=== PATIENT | male | born 1950 | race Caucasian/White ===

== ENCOUNTER 2020-03-28 04:35 | Day surgery (SDC) | payer OTHER ==
[2020-03-22 13:35] VITALS: BMI 28.6
[2020-03-28 08:51] VITALS: TEMP 97.8
[2020-03-28 09:26] VITALS: BP 128/89; PULSE 70
== END 2020-03-28 10:37 | disposition home or self-care (01) ==
LOC: JASU-ENDO 04:35
PROVIDERS: ATTEND Internal Medicine Gastroenterology
PROC: 0DB68ZX Excision of Stomach, Via Natural or Artificial Opening Endoscopic, Diagnostic (ICD-10-PCS; 2020-03-28)
PROC: 0DJD8ZZ Inspection of Lower Intestinal Tract, Via Natural or Artificial Opening Endoscopic (ICD-10-PCS; 2020-03-28)
PROC: 0DB98ZX Excision of Duodenum, Via Natural or Artificial Opening Endoscopic, Diagnostic (ICD-10-PCS; principal; 2020-03-28 08:00)
DX: Z12.11 Encounter for screening for malignant neoplasm of colon (principal); Z80.0 Family history of malignant neoplasm of digestive organs; K29.80 Duodenitis without bleeding; G20 Parkinson's disease; R63.4 Abnormal weight loss
CPT/HCPCS: 43239; G0105; 88305-TC; 88342-TC

== ENCOUNTER 2020-05-05 11:42 | Emergency (ER) | payer OTHER ==
[2020-05-05 12:08] VITALS: TEMP 97.8; BMI 27.1
[2020-05-05 13:26] LABS: BASO % 0.5 % (0-2.0); EOS % 0.5 % (0-4.5); LYMPH % 17.4 % (8-40); MCH 29.6 pg (25.7-33.7); MCHC 34.1 g/dl (32.0-35.9); MEAN CELL VOLUME 86.7 fl (80-96); MEAN PLT VOLUME 9.3 fl (7.5-11.1); MONO % 16.4 % (3.8-10.2); NEUT % 65.2 % (42.8-82.8); PLATELET COUNT 131 K/MM3 (134-434); RBC 5.42 M/mm3 (4.00-5.60); RDW 13.8 % (11.9-15.9); WHITE BLOOD COUNT 4.4 K/mm3 (4.0-10.0)
[2020-05-05 13:45] LABS: POTASSIUM 4.1 mmol/L (3.5-5.1)
[2020-05-05 13:47] LABS: CALCIUM 9.1 mg/dL (8.5-10.1)
[2020-05-05 13:48] LABS: ALBUMIN 3.9 g/dl (3.4-5.0); BLOOD UREA NITROGEN 20.2 mg/dL (7-18)
[2020-05-05 13:51] LABS: CREATININE 1.2 mg/dL (0.55-1.3)
[2020-05-05 13:52] LABS: BILIRUBIN,TOTAL 0.6 mg/dL (0.2-1)
[2020-05-05] MEDS ORDERED: CASIRIVIMAB (REGN10933) 1,200 MG, IMDEVIMAB (REGN10987) 1,200 MG in SODIUM CHLORIDE 250 ML IVPB ONE (16:09)
[2020-05-05 19:21] VITALS: BP 140/80; PULSE 72
[2020-05-05] MEDS ORDERED: guaiFENesin/CODEINE 10 ML UNIT-DOSE CUPS PO ONE (19:55)
== END 2020-05-05 20:06 | disposition home or self-care (01) ==
LOC: JCOVINFU 11:42 → JER 11:42 → JCOVINFU 20:06
PROC: 3E033GC Introduction of Other Therapeutic Substance into Peripheral Vein, Percutaneous Approach (ICD-10-PCS; principal; 2020-05-05)
DX: U07.1 COVID-19 (principal)
CPT/HCPCS: 36415; 80053; 85025; 86769; 99284-25; C9803; M0243; Q0243; U0003

== ENCOUNTER 2021-02-07 19:06 | Inpatient (IN) | payer OTHER ==
[2021-02-07 19:22] VITALS: BMI 28.5
[2021-02-07 21:24] LABS: BASO % 0.4 % (0-2.0); EOS % 1.5 % (0-4.5); HEMATOCRIT 39.5 % (35.4-49); HEMOGLOBIN 13.5 GM/dL (11.7-16.9); LYMPH % 25.2 % (8-40); MCH 29.3 pg (25.7-33.7); MCHC 34.2 g/dl (32.0-35.9); MEAN CELL VOLUME 85.5 fl (80-96); MEAN PLT VOLUME 8.1 fl (7.5-11.1); MONO % 11.3 % (3.8-10.2); NEUT % 61.6 % (42.8-82.8); PLATELET COUNT 153 10^3/uL (134-434); RBC 4.62 M/mm3 (4.00-5.60); WHITE BLOOD COUNT 6.4 K/mm3 (4.0-10.0)
[2021-02-07 21:42] LABS: CHLORIDE 104 mmol/L (98-107); SODIUM 140 mmol/L (136-145)
[2021-02-07 21:45] LABS: ALBUMIN 3.3 g/dl (3.4-5.0); ANION GAP 5 MMOL/L (8-16); BLOOD UREA NITROGEN 15.3 mg/dL (7-18); CALCIUM 8.6 mg/dL (8.5-10.1); CO2 31 mmol/L (21-32); GLUCOSE,RANDOM 81 mg/dL (74-106)
[2021-02-07 21:46] LABS: MAGNESIUM 2.1 mg/dL (1.8-2.4)
[2021-02-07 21:48] LABS: CREATININE 1.1 mg/dL (0.55-1.3); SGOT/AST 17 U/L (15-37); SGPT/ALT 8 U/L (13-61)
[2021-02-07 21:49] LABS: PHOSPHOROUS 2.7 mg/dL (2.5-4.9)
[2021-02-07 21:50] LABS: BILIRUBIN,TOTAL 0.9 mg/dL (0.2-1)
[2021-02-07 21:51] LABS: ALK PHOS 61 U/L (45-117)
[2021-02-08 00:37] LABS: URINE APPEARANCE CLEAR; URINE BILIRUBIN NEGATIVE (NEGATIVE); URINE COLOR YELLOW; URINE GLUCOSE (UA) NEGATIVE (NEGATIVE); URINE KETONE TRACE (NEGATIVE); URINE LEUK ESTERASE NEGATIVE (NEGATIVE); URINE NITRITE NEGATIVE (NEGATIVE); URINE PROTEIN NEGATIVE (NEGATIVE)
[2021-02-08 05:52] LABS: BASO % 0.6 % (0-2.0); EOS % 1.7 % (0-4.5); HEMATOCRIT 39.5 % (35.4-49); HEMOGLOBIN 13.7 GM/dL (11.7-16.9); MCH 29.6 pg (25.7-33.7); MCHC 34.5 g/dl (32.0-35.9); MEAN CELL VOLUME 85.6 fl (80-96); MEAN PLT VOLUME 8.2 fl (7.5-11.1); MONO % 11.1 % (3.8-10.2); NEUT % 61.6 % (42.8-82.8); PLATELET COUNT 164 10^3/uL (134-434); RBC 4.62 M/mm3 (4.00-5.60); RDW 13.9 % (11.9-15.9); WHITE BLOOD COUNT 5.7 K/mm3 (4.0-10.0)
[2021-02-08 06:05] LABS: ALBUMIN 3.2 g/dl (3.4-5.0); BLOOD UREA NITROGEN 14.4 mg/dL (7-18); CALCIUM 8.8 mg/dL (8.5-10.1); MAGNESIUM 2.2 mg/dL (1.8-2.4)
[2021-02-08 06:08] LABS: CREATININE 1.2 mg/dL (0.55-1.3); PHOSPHOROUS 3.4 mg/dL (2.5-4.9)
[2021-02-08 06:09] LABS: TOT PROT 5.8 g/dl (6.4-8.2)
[2021-02-08] MEDS ORDERED: PT OWN MED DRAWER 7, Y5N ONE ×3 (09:12→13:16)
[2021-02-08] MEDS: FINASTERIDE 5 MG TABLET (FP) PO SCH (09:42)
[2021-02-08] MEDS: ENOXAPARIN NA (PORCINE) 40 MG/0.4 ML DISP.SYRIN SQ SCH (09:42)
[2021-02-08] MEDS: HYDROCHLOROTHIAZIDE 25 MG TABLET (FP) PO SCH (09:42)
[2021-02-08] MEDS: FUROSEMIDE 20 MG TABLET (FP) PO SCH (09:42)
[2021-02-08] MEDS: AMANTADINE HCL 100 MG TABLET PO SCH (14:33)
[2021-02-08] MEDS: RASAGILINE MESYLATE 1 MG TABLET PO SCH (14:34)
[2021-02-08] MEDS ORDERED: SENNOSIDES 8.6MG TABLET (FP) PO SCH (22:00)
[2021-02-08] MEDS ORDERED: rOPINIRole HCL 0.5 MG TABLET PO SCH (22:00)
[2021-02-08] MEDS ORDERED: rOPINIRole HCL 1 MG TABLET (FP) PO SCH (22:00)
[2021-02-08] MEDS: CARBIDOPA/LEVODOPA 25/250 TABLET (FP) PO SCH (22:32)
[2021-02-08] MEDS ORDERED: MELATONIN 5 MG TABLETS PO ONE (22:36)
[2021-02-09] MEDS: CARBIDOPA/LEVODOPA 25/250 TABLET (FP) PO SCH ×6 (00:53→15:16)
[2021-02-09] MEDS: rOPINIRole HCL 0.25 MG TABLET PO SCH ×2 (06:50→15:16)
[2021-02-09 09:16] LABS: HEMATOCRIT 39.9 % (35.4-49); HEMOGLOBIN 13.9 GM/dL (11.7-16.9); MCH 29.7 pg (25.7-33.7); MCHC 34.7 g/dl (32.0-35.9); MEAN CELL VOLUME 85.6 fl (80-96); MEAN PLT VOLUME 8.7 fl (7.5-11.1); PLATELET COUNT 171 10^3/uL (134-434); RBC 4.66 M/mm3 (4.00-5.60); RDW 13.6 % (11.9-15.9); WHITE BLOOD COUNT 6.6 K/mm3 (4.0-10.0)
[2021-02-09 09:24] LABS: CHLORIDE 101 mmol/L (98-107); SODIUM 139 mmol/L (136-145)
[2021-02-09] MEDS: FINASTERIDE 5 MG TABLET (FP) PO SCH (09:26)
[2021-02-09] MEDS: HYDROCHLOROTHIAZIDE 25 MG TABLET (FP) PO SCH (09:26)
[2021-02-09] MEDS: FUROSEMIDE 20 MG TABLET (FP) PO SCH (09:26)
[2021-02-09] MEDS: ENOXAPARIN NA (PORCINE) 40 MG/0.4 ML DISP.SYRIN SQ SCH (09:26)
[2021-02-09] MEDS ORDERED: PT OWN MED DRAWER 7, Y5N ONE ×4 (09:28→15:12)
[2021-02-09] MEDS: AMANTADINE HCL 100 MG TABLET PO SCH (09:31)
[2021-02-09] MEDS: RASAGILINE MESYLATE 1 MG TABLET PO SCH (09:36)
[2021-02-09 09:42] LABS: ALBUMIN 3.4 g/dl (3.4-5.0); GLUCOSE,RANDOM 95 mg/dL (74-106)
[2021-02-09 09:43] LABS: ANION GAP 4 MMOL/L (8-16); CO2 33 mmol/L (21-32)
[2021-02-09 09:45] LABS: CREATININE 1.1 mg/dL (0.55-1.3); SGOT/AST 13 U/L (15-37); SGPT/ALT < 6 U/L (13-61)
[2021-02-09 09:47] LABS: TOT PROT 6.1 g/dl (6.4-8.2)
[2021-02-09 09:49] LABS: ALK PHOS 63 U/L (45-117)
[2021-02-09] MEDS ORDERED: DOCUSATE SODIUM 100 MG CAPSULE (FP) PO SCH (10:00)
[2021-02-09 14:19] VITALS: BP 108/58; PULSE 84; TEMP 98.6
== END 2021-02-09 18:15 | disposition home or self-care (01) | DRG 57 ==
LOC: JER 19:06 → JERBED 02-08 00:17 → J6S 02-08 07:06
PROVIDERS: ADMIT Internal Medicine
DX: G20 Parkinson's disease (principal); I10 Essential (primary) hypertension; F31.9 Bipolar disorder, unspecified; F02.80 Dementia in other diseases classified elsewhere, unspecified severity, without behavioral disturbance, psychotic disturbance, mood disturbance, and anxiety; E78.5 Hyperlipidemia, unspecified; R26.81 Unsteadiness on feet; G24.9 Dystonia, unspecified
CPT/HCPCS: 36415; 70450-TC; 70551-TC; 71045-TC-FY; 80053; 80061; 81003; 82607; 83735; 84100; 84443; 84484; 85025; 85027; 87086; 93005; 93010; 93306-TC; 97116-GP; 97162-GP; 99285-25; C9803; U0003; U0005

== ENCOUNTER 2021-03-16 16:00 | Inpatient (IN) | payer OTHER ==
[2021-03-16 17:47] LABS: BASO % 0.5 % (0-2.0); EOS % 1.3 % (0-4.5); HEMATOCRIT 41.6 % (35.4-49); HEMOGLOBIN 14.1 GM/dL (11.7-16.9); LYMPH % 15.6 % (8-40); MCH 29.1 pg (25.7-33.7); MCHC 33.8 g/dl (32.0-35.9); MEAN CELL VOLUME 86.3 fl (80-96); MEAN PLT VOLUME 8.4 fl (7.5-11.1); MONO % 10.6 % (3.8-10.2); PLATELET COUNT 188 10^3/uL (134-434); RBC 4.83 M/mm3 (4.00-5.60); WHITE BLOOD COUNT 7.4 K/mm3 (4.0-10.0)
[2021-03-16 18:08] LABS: CHLORIDE 104 mmol/L (98-107); SODIUM 142 mmol/L (136-145)
[2021-03-16 18:10] LABS: ALBUMIN 3.4 g/dl (3.4-5.0); ANION GAP 7 MMOL/L (8-16); BLOOD UREA NITROGEN 26.1 mg/dL (7-18); CO2 32 mmol/L (21-32); GLUCOSE,RANDOM 95 mg/dL (74-106)
[2021-03-16 18:11] LABS: MAGNESIUM 2.5 mg/dL (1.8-2.4)
[2021-03-16 18:13] LABS: SGOT/AST 33 U/L (15-37); SGPT/ALT 13 U/L (13-61)
[2021-03-16 18:14] LABS: CREATININE 1.3 mg/dL (0.55-1.3)
[2021-03-16 18:15] LABS: BILIRUBIN,TOTAL 0.9 mg/dL (0.2-1); TOT PROT 6.4 g/dl (6.4-8.2)
[2021-03-16 18:16] LABS: ALK PHOS 84 U/L (45-117)
[2021-03-16] MEDS ORDERED: ENOXAPARIN NA (PORCINE) 40 MG/0.4 ML DISP.SYRIN SQ ONE (21:46)
[2021-03-16] MEDS: ENOXAPARIN NA (PORCINE) 40 MG/0.4 ML DISP.SYRIN SQ SCH (21:57)
[2021-03-16] MEDS ORDERED: QUEtiapine FUMARATE 100 MG TABLET (FP) PO SCH (22:00)
[2021-03-16] MEDS ORDERED: FUROSEMIDE 40 MG TABLET (FP) ONE (22:01)
[2021-03-16] MEDS: FUROSEMIDE 20 MG TABLET (FP) PO SCH (22:15)
[2021-03-16] MEDS: CARBIDOPA/LEVODOPA 25/250 TABLET (FP) PO SCH (22:16)
[2021-03-17] MEDS ORDERED: CARBIDOPA/LEVODOPA 25/250 TABLET (FP) ONE (00:49)
[2021-03-17] MEDS: CARBIDOPA/LEVODOPA 25/250 TABLET (FP) PO SCH ×8 (01:00→21:31)
[2021-03-17 03:42] VITALS: BMI 27.3
[2021-03-17] MEDS: rOPINIRole HCL 0.5 MG TABLET PO SCH ×3 (06:41→18:35)
[2021-03-17 08:30] LABS: CALCIUM 8.7 mg/dL (8.5-10.1)
[2021-03-17 08:31] LABS: ALBUMIN 2.9 g/dl (3.4-5.0); BLOOD UREA NITROGEN 24.3 mg/dL (7-18); MAGNESIUM 2.3 mg/dL (1.8-2.4)
[2021-03-17 08:34] LABS: CREATININE 1.1 mg/dL (0.55-1.3); PHOSPHOROUS 2.4 mg/dL (2.5-4.9)
[2021-03-17 08:35] LABS: BILIRUBIN,TOTAL 1.3 mg/dL (0.2-1); TOT PROT 5.9 g/dl (6.4-8.2)
[2021-03-17 08:51] LABS: BASO % 0.5 % (0-2.0); EOS % 1.4 % (0-4.5); HEMATOCRIT 39.2 % (35.4-49); HEMOGLOBIN 13.4 GM/dL (11.7-16.9); LYMPH % 18.1 % (8-40); MCH 29.2 pg (25.7-33.7); MCHC 34.3 g/dl (32.0-35.9); MEAN CELL VOLUME 85.4 fl (80-96); MEAN PLT VOLUME 8.5 fl (7.5-11.1); MONO % 9.1 % (3.8-10.2); NEUT % 70.9 % (42.8-82.8); PLATELET COUNT 186 10^3/uL (134-434); RDW 13.8 % (11.9-15.9); WHITE BLOOD COUNT 6.3 K/mm3 (4.0-10.0)
[2021-03-17] MEDS: RASAGILINE MESYLATE 1 MG TABLET PO SCH (09:54)
[2021-03-17] MEDS ORDERED: PATIENT'S OWN MEDICATION (NON-FORMULARY) (Bupropion Hcl [Bupropion Xl] 300 MG Tab.Er.24h) PO SCH (10:00)
[2021-03-17] MEDS: ENOXAPARIN NA (PORCINE) 40 MG/0.4 ML DISP.SYRIN SQ SCH (10:23)
[2021-03-17] MEDS: AMANTADINE HCL 100 MG TABLET PO SCH (10:24)
[2021-03-17] MEDS: FINASTERIDE 5 MG TABLET (FP) PO SCH (10:24)
[2021-03-17] MEDS ORDERED: QUEtiapine FUMARATE 25 MG TABLET PO SCH (12:14)
[2021-03-17] MEDS ORDERED: PT OWN MED DRAWER 7, Y5N ONE (20:04)
[2021-03-17] MEDS ORDERED: rOPINIRole HCL 1 MG TABLET (FP) PO SCH (21:00)
[2021-03-17] MEDS: rOPINIRole HCL 1 MG TABLET (FP) PO SCH (21:31)
[2021-03-17] MEDS: HYDROCHLOROTHIAZIDE 25 MG TABLET (FP) PO SCH (21:34)
[2021-03-18] MEDS: CARBIDOPA/LEVODOPA 25/250 TABLET (FP) PO SCH ×8 (01:07→21:40)
[2021-03-18] MEDS: rOPINIRole HCL 0.5 MG TABLET PO SCH ×3 (06:39→18:03)
[2021-03-18] MEDS ORDERED: PT OWN MED DRAWER 7, Y5N ONE ×2 (06:48→21:36)
[2021-03-18 09:15] LABS: HEMATOCRIT 41.2 % (35.4-49); HEMOGLOBIN 13.9 GM/dL (11.7-16.9); MCH 28.7 pg (25.7-33.7); MCHC 33.6 g/dl (32.0-35.9); MEAN CELL VOLUME 85.5 fl (80-96); MEAN PLT VOLUME 8.4 fl (7.5-11.1); PLATELET COUNT 203 10^3/uL (134-434); RBC 4.82 M/mm3 (4.00-5.60); RDW 13.5 % (11.9-15.9); WHITE BLOOD COUNT 7.1 K/mm3 (4.0-10.0)
[2021-03-18 10:05] LABS: BLOOD UREA NITROGEN 23.1 mg/dL (7-18)
[2021-03-18 10:07] LABS: CREATININE 1.1 mg/dL (0.55-1.3)
[2021-03-18] MEDS: ENOXAPARIN NA (PORCINE) 40 MG/0.4 ML DISP.SYRIN SQ SCH (11:16)
[2021-03-18] MEDS: FINASTERIDE 5 MG TABLET (FP) PO SCH (11:17)
[2021-03-18] MEDS: RASAGILINE MESYLATE 1 MG TABLET PO SCH (11:19)
[2021-03-18] MEDS: AMANTADINE HCL 100 MG TABLET PO SCH (11:19)
[2021-03-18] MEDS ORDERED: QUEtiapine FUMARATE 25 MG TABLET PO SCH (15:59)
[2021-03-18] MEDS: HYDROCHLOROTHIAZIDE 25 MG TABLET (FP) PO SCH (21:39)
[2021-03-18] MEDS: rOPINIRole HCL 1 MG TABLET (FP) PO SCH (21:40)
[2021-03-19] MEDS ORDERED: PT OWN MED DRAWER 7, Y5N ONE ×5 (06:46→21:15)
[2021-03-19] MEDS: rOPINIRole HCL 0.5 MG TABLET PO SCH ×3 (06:51→18:04)
[2021-03-19] MEDS: ENOXAPARIN NA (PORCINE) 40 MG/0.4 ML DISP.SYRIN SQ SCH (09:08)
[2021-03-19] MEDS: FINASTERIDE 5 MG TABLET (FP) PO SCH (09:08)
[2021-03-19] MEDS: CARBIDOPA/LEVODOPA 25/250 TABLET (FP) PO SCH ×5 (09:09→21:20)
[2021-03-19] MEDS: RASAGILINE MESYLATE 1 MG TABLET PO SCH (09:10)
[2021-03-19] MEDS: AMANTADINE HCL 100 MG TABLET PO SCH (09:11)
[2021-03-19] MEDS ORDERED: ACETAMINOPHEN 325 MG TABLET (FP) PO ONE (11:16)
[2021-03-19 11:18] LABS: CALCIUM 9.6 mg/dL (8.5-10.1)
[2021-03-19 11:19] LABS: BLOOD UREA NITROGEN 18.4 mg/dL (7-18)
[2021-03-19 11:22] LABS: CREATININE 0.9 mg/dL (0.55-1.3)
[2021-03-19] MEDS ORDERED: QUEtiapine FUMARATE 50 MG TABLET PO SCH (16:26)
[2021-03-19] MEDS: FUROSEMIDE 20 MG TABLET (FP) PO SCH (21:21)
[2021-03-19] MEDS: rOPINIRole HCL 1 MG TABLET (FP) PO SCH (21:21)
[2021-03-20] MEDS: rOPINIRole HCL 0.5 MG TABLET PO SCH ×2 (05:34→12:06)
[2021-03-20] MEDS ORDERED: PT OWN MED DRAWER 7, Y5N ONE (09:21)
[2021-03-20] MEDS: RASAGILINE MESYLATE 1 MG TABLET PO SCH (09:22)
[2021-03-20] MEDS: CARBIDOPA/LEVODOPA 25/250 TABLET (FP) PO SCH ×2 (09:23→12:06)
[2021-03-20] MEDS: ENOXAPARIN NA (PORCINE) 40 MG/0.4 ML DISP.SYRIN SQ SCH (09:23)
[2021-03-20] MEDS: AMANTADINE HCL 100 MG TABLET PO SCH (09:23)
[2021-03-20] MEDS: FINASTERIDE 5 MG TABLET (FP) PO SCH (09:23)
[2021-03-20] MEDS ORDERED: ASCORBIC ACID 250 MG TABLET (FP) PO SCH ×2 (10:00)
[2021-03-20] MEDS ORDERED: MULTIVITAMINS (DAILY MVI) TABLET (FP) PO SCH ×2 (10:00)
[2021-03-20] MEDS ORDERED: ZINC SULFATE 220 MG CAPSULE (FP) PO SCH ×2 (10:00)
[2021-03-20 14:27] VITALS: BP 121/72; PULSE 79; TEMP 97.8
== END 2021-03-20 15:36 | DRG 57 ==
LOC: JER 16:00 → JERBED 17:03 → J6S 03-17 03:09
PROVIDERS: ADMIT Hospitalist; ATTEND Internal Medicine
DX: G20 Parkinson's disease (principal); G81.94 Hemiplegia, unspecified affecting left nondominant side; I10 Essential (primary) hypertension; L89.322 Pressure ulcer of left buttock, stage 2; L89.312 Pressure ulcer of right buttock, stage 2; L89.152 Pressure ulcer of sacral region, stage 2; K21.9 Gastro-esophageal reflux disease without esophagitis; N40.0 Benign prostatic hyperplasia without lower urinary tract symptoms; F32.9 Major depressive disorder, single episode, unspecified
CPT/HCPCS: 36415; 71045-TC-FY; 80048; 80053; 82550; 82553; 83735; 84100; 84484; 85025; 85027; 93005; 93010; 97116-GP; 97162-GP; 99285-25; C9803; U0003; U0005

== ENCOUNTER 2021-04-30 10:15 | Inpatient (IN) | payer OTHER ==
[2021-04-30] MEDS ORDERED: LACTATED RINGERS SOLUTION 1000 ML INFUS.BAG IV ONE (11:31)
[2021-04-30] MEDS: CARBIDOPA/LEVODOPA 25/250 TABLET (FP) PO SCH ×2 (12:48→18:47)
[2021-04-30] MEDS ORDERED: rOPINIRole HCL 0.5 MG TABLET PO ONE (12:56)
[2021-04-30 13:19] LABS: BASO % 0.3 % (0-2.0); EOS % 0.4 % (0-4.5); HEMOGLOBIN 12.6 GM/dL (11.7-16.9); LYMPH % 7.1 % (8-40); MCH 28.9 pg (25.7-33.7); MCHC 33.2 g/dl (32.0-35.9); MEAN CELL VOLUME 87.1 fl (80-96); MEAN PLT VOLUME 7.4 fl (7.5-11.1); NEUT % 84.2 % (42.8-82.8); PLATELET COUNT 276 10^3/uL (134-434); RBC 4.37 M/mm3 (4.00-5.60); RDW 13.9 % (11.9-15.9); WHITE BLOOD COUNT 14.6 K/mm3 (4.0-10.0)
[2021-04-30 13:38] LABS: ALBUMIN 2.9 g/dl (3.4-5.0); BLOOD UREA NITROGEN 27.9 mg/dL (7-18)
[2021-04-30 13:42] LABS: BILIRUBIN,TOTAL 0.6 mg/dL (0.2-1); TOT PROT 6.2 g/dl (6.4-8.2)
[2021-04-30] MEDS ORDERED: VANCOMYCIN HCL 1,500 MG in DEXTROSE 5%-WATER - 500 ML IVPB ONE (13:45)
[2021-04-30] MEDS ORDERED: VANCOMYCIN 500 MG VIAL (RESTRICTED TO ID ONLY) ONE (14:19)
[2021-04-30] MEDS ORDERED: VANCOMYCIN 1 GRAM (PRE-DOCKED) 1,000 MG/250 ML BAG IVPB ONE (14:20)
[2021-04-30] MEDS ORDERED: PIPERACILLIN/TAZOB 3.375 GM 3.375 GM in DEXTROSE 5%-WATER - 50 ML IVPB SCH (14:45)
[2021-04-30] MEDS ORDERED: CARBIDOPA/LEVODOPA 25/250 TABLET (FP) ONE ×2 (18:28→23:51)
[2021-04-30] MEDS ORDERED: PIPERACILLIN/TAZOB 3.375 GM 3.375 GM/50 ML BAG IVPB ONE (18:29)
[2021-04-30] MEDS: PIPERACILLIN/TAZOB 3.375 GM 3.375 GM in DEXTROSE 5%-WATER - 50 ML IVPB SCH (18:46)
[2021-04-30 19:21] LABS: PH,URINE 6.5 (5.0-8.0); URINE APPEARANCE CLEAR; URINE BILIRUBIN NEGATIVE (NEGATIVE); URINE COLOR YELLOW; URINE GLUCOSE (UA) NEGATIVE (NEGATIVE); URINE KETONE NEGATIVE (NEGATIVE); URINE LEUK ESTERASE NEGATIVE (NEGATIVE); URINE NITRITE NEGATIVE (NEGATIVE); URINE PROTEIN NEGATIVE (NEGATIVE); URINE UROBILINOGEN 0.2 mg/dL (0.2-1.0)
[2021-04-30] MEDS ORDERED: rOPINIRole HCL 1 MG TABLET (FP) PO SCH (21:00)
[2021-04-30] MEDS ORDERED: HEPARIN NA (PORCINE) 5,000 UNITS/ML 1ML VIAL ONE (23:51)
[2021-05-01] MEDS: CARBIDOPA/LEVODOPA 25/250 TABLET (FP) PO SCH ×8 (00:02→22:00)
[2021-05-01] MEDS: HEPARIN NA (PORCINE) 5,000 UNITS/ML 1ML VIAL SQ SCH ×4 (00:06→22:00)
[2021-05-01] MEDS ORDERED: DEXTROSE 5%-WATER - 50 ML IVPB ONE ×3 (01:12→18:10)
[2021-05-01] MEDS ORDERED: PIPERACILLIN/TAZOBACTAM 3.375 GM VIAL IVPB ONE ×3 (01:12→18:10)
[2021-05-01] MEDS: PIPERACILLIN/TAZOB 3.375 GM 3.375 GM in DEXTROSE 5%-WATER - 50 ML IVPB SCH ×3 (01:20→18:11)
[2021-05-01] MEDS: HYDROCHLOROTHIAZIDE 25 MG TABLET (FP) PO SCH (09:12)
[2021-05-01] MEDS: AMANTADINE HCL 100 MG TABLET PO SCH (10:56)
[2021-05-01] MEDS: rOPINIRole HCL 1 MG TABLET (FP) PO SCH (12:26)
[2021-05-01 13:58] LABS: BASO % 0.2 % (0-2.0); EOS % 0.3 % (0-4.5); HEMATOCRIT 35.2 % (35.4-49); HEMOGLOBIN 11.8 GM/dL (11.7-16.9); LYMPH % 8.1 % (8-40); MCH 28.9 pg (25.7-33.7); MCHC 33.5 g/dl (32.0-35.9); MEAN CELL VOLUME 86.2 fl (80-96); MEAN PLT VOLUME 7.5 fl (7.5-11.1); MONO % 8.4 % (3.8-10.2); PLATELET COUNT 301 10^3/uL (134-434); RBC 4.09 M/mm3 (4.00-5.60); WHITE BLOOD COUNT 13.7 K/mm3 (4.0-10.0)
[2021-05-01 14:25] LABS: CALCIUM 8.5 mg/dL (8.5-10.1)
[2021-05-01 14:26] LABS: ALBUMIN 2.6 g/dl (3.4-5.0); BLOOD UREA NITROGEN 24.5 mg/dL (7-18); MAGNESIUM 2.3 mg/dL (1.8-2.4)
[2021-05-01 14:30] LABS: BILIRUBIN,TOTAL 0.7 mg/dL (0.2-1); TOT PROT 5.7 g/dl (6.4-8.2)
[2021-05-01] MEDS: COLLAGENASE CLOSTRIDIUM HIST. 30 GRAMS TUBE TP SCH (21:59)
[2021-05-02] MEDS ORDERED: PIPERACILLIN/TAZOBACTAM 3.375 GM VIAL IVPB ONE ×3 (02:26→17:28)
[2021-05-02] MEDS ORDERED: DEXTROSE 5%-WATER - 50 ML IVPB ONE ×3 (02:27→17:28)
[2021-05-02] MEDS: PIPERACILLIN/TAZOB 3.375 GM 3.375 GM in DEXTROSE 5%-WATER - 50 ML IVPB SCH ×3 (02:43→17:29)
[2021-05-02] MEDS: CARBIDOPA/LEVODOPA 25/250 TABLET (FP) PO SCH ×6 (06:35→21:59)
[2021-05-02] MEDS: HEPARIN NA (PORCINE) 5,000 UNITS/ML 1ML VIAL SQ SCH ×3 (06:36→21:58)
[2021-05-02 08:22] LABS: BASO % 0.2 % (0-2.0); EOS % 0.3 % (0-4.5); HEMATOCRIT 35.6 % (35.4-49); HEMOGLOBIN 11.5 GM/dL (11.7-16.9); LYMPH % 7.6 % (8-40); MCH 28.4 pg (25.7-33.7); MCHC 32.2 g/dl (32.0-35.9); MEAN PLT VOLUME 7.6 fl (7.5-11.1); MONO % 8.8 % (3.8-10.2); NEUT % 83.1 % (42.8-82.8); PLATELET COUNT 318 10^3/uL (134-434); RBC 4.04 M/mm3 (4.00-5.60); RDW 14.1 % (11.9-15.9); WHITE BLOOD COUNT 14.9 K/mm3 (4.0-10.0)
[2021-05-02 08:50] LABS: ALBUMIN 2.4 g/dl (3.4-5.0); BLOOD UREA NITROGEN 23.1 mg/dL (7-18); CALCIUM 8.4 mg/dL (8.5-10.1)
[2021-05-02 08:51] LABS: MAGNESIUM 2.4 mg/dL (1.8-2.4)
[2021-05-02 08:54] LABS: BILIRUBIN,TOTAL 0.8 mg/dL (0.2-1); TOT PROT 5.7 g/dl (6.4-8.2)
[2021-05-02] MEDS: FINASTERIDE 5 MG TABLET (FP) PO SCH (09:26)
[2021-05-02] MEDS: rOPINIRole HCL 1 MG TABLET (FP) PO SCH (09:26)
[2021-05-02] MEDS: COLLAGENASE CLOSTRIDIUM HIST. 30 GRAMS TUBE TP SCH (09:26)
[2021-05-02] MEDS: AMANTADINE HCL 100 MG TABLET PO SCH (09:26)
[2021-05-02] MEDS ORDERED: FUROSEMIDE 20 MG TABLET (FP) PO SCH (10:00)
[2021-05-02] MEDS: FUROSEMIDE 20 MG TABLET (FP) PO SCH (10:53)
[2021-05-02] MEDS ORDERED: rOPINIRole HCL 0.5 MG TABLET PO SCH ×2 (18:00→23:16)
[2021-05-02] MEDS ORDERED: rOPINIRole HCL 1 MG TABLET (FP) PO SCH (21:00)
[2021-05-02 23:23] VITALS: BMI 27.0
[2021-05-03] MEDS ORDERED: DEXTROSE 5%-WATER - 50 ML IVPB ONE ×3 (02:33→17:34)
[2021-05-03] MEDS ORDERED: PIPERACILLIN/TAZOBACTAM 3.375 GM VIAL IVPB ONE ×3 (02:33→17:34)
[2021-05-03] MEDS: PIPERACILLIN/TAZOB 3.375 GM 3.375 GM in DEXTROSE 5%-WATER - 50 ML IVPB SCH ×3 (02:42→17:55)
[2021-05-03] MEDS ORDERED: rOPINIRole HCL 0.5 MG TABLET PO SCH ×2 (06:00→07:00)
[2021-05-03] MEDS: CARBIDOPA/LEVODOPA 25/100 TABLET (FP) PO SCH ×6 (06:39→22:07)
[2021-05-03] MEDS: HEPARIN NA (PORCINE) 5,000 UNITS/ML 1ML VIAL SQ SCH ×3 (06:39→22:07)
[2021-05-03] MEDS: rOPINIRole HCL 0.25 MG TABLET PO SCH ×5 (06:41→22:08)
[2021-05-03] MEDS: CARBIDOPA/LEVODOPA 25/250 TABLET (FP) PO SCH ×6 (06:52→22:09)
[2021-05-03] MEDS: FINASTERIDE 5 MG TABLET (FP) PO SCH (09:44)
[2021-05-03] MEDS: ASCORBIC ACID 500 MG TABLET (FP) PO SCH (09:44)
[2021-05-03] MEDS: ZINC SULFATE 220 MG CAPSULE (FP) PO SCH (09:44)
[2021-05-03] MEDS: AMANTADINE HCL 100 MG TABLET PO SCH (09:45)
[2021-05-03] MEDS: FUROSEMIDE 20 MG TABLET (FP) PO SCH (09:52)
[2021-05-03] MEDS: HYDROCHLOROTHIAZIDE 25 MG TABLET (FP) PO SCH (09:52)
[2021-05-03 09:57] LABS: BASO % 0.5 % (0-2.0); EOS % 0.6 % (0-4.5); HEMATOCRIT 35.1 % (35.4-49); HEMOGLOBIN 11.7 GM/dL (11.7-16.9); LYMPH % 10.8 % (8-40); MCHC 33.5 g/dl (32.0-35.9); MEAN CELL VOLUME 86.7 fl (80-96); MEAN PLT VOLUME 7.4 fl (7.5-11.1); MONO % 7.9 % (3.8-10.2); NEUT % 80.2 % (42.8-82.8); PLATELET COUNT 317 10^3/uL (134-434); RBC 4.04 M/mm3 (4.00-5.60); RDW 13.8 % (11.9-15.9); WHITE BLOOD COUNT 10.6 K/mm3 (4.0-10.0)
[2021-05-03 10:26] LABS: CALCIUM 8.5 mg/dL (8.5-10.1)
[2021-05-03 10:27] LABS: ALBUMIN 2.5 g/dl (3.4-5.0); BLOOD UREA NITROGEN 24.9 mg/dL (7-18); MAGNESIUM 2.4 mg/dL (1.8-2.4)
[2021-05-03 10:28] LABS: CREATININE 1.1 mg/dL (0.55-1.3)
[2021-05-03 10:30] LABS: BILIRUBIN,TOTAL 0.6 mg/dL (0.2-1); TOT PROT 5.9 g/dl (6.4-8.2)
[2021-05-03] MEDS: COLLAGENASE CLOSTRIDIUM HIST. 30 GRAMS TUBE TP SCH (11:12)
[2021-05-03] MEDS ORDERED: QUEtiapine FUMARATE 25 MG TABLET PO SCH (22:00)
[2021-05-04] MEDS ORDERED: PIPERACILLIN/TAZOBACTAM 3.375 GM VIAL IVPB ONE ×2 (02:03→09:40)
[2021-05-04] MEDS ORDERED: DEXTROSE 5%-WATER - 50 ML IVPB ONE ×2 (02:03→09:40)
[2021-05-04] MEDS: CARBIDOPA/LEVODOPA 25/250 TABLET (FP) PO SCH ×4 (02:08→09:46)
[2021-05-04] MEDS: CARBIDOPA/LEVODOPA 25/100 TABLET (FP) PO SCH ×4 (02:08→09:45)
[2021-05-04] MEDS: PIPERACILLIN/TAZOB 3.375 GM 3.375 GM in DEXTROSE 5%-WATER - 50 ML IVPB SCH ×2 (02:08→09:45)
[2021-05-04] MEDS: HEPARIN NA (PORCINE) 5,000 UNITS/ML 1ML VIAL SQ SCH (06:16)
[2021-05-04] MEDS: rOPINIRole HCL 0.25 MG TABLET PO SCH ×2 (06:16→13:05)
[2021-05-04] MEDS: FINASTERIDE 5 MG TABLET (FP) PO SCH (09:44)
[2021-05-04] MEDS: FUROSEMIDE 20 MG TABLET (FP) PO SCH (09:44)
[2021-05-04] MEDS: ZINC SULFATE 220 MG CAPSULE (FP) PO SCH (09:45)
[2021-05-04] MEDS: ASCORBIC ACID 500 MG TABLET (FP) PO SCH (09:47)
[2021-05-04 11:09] VITALS: BP 146/87; PULSE 84; TEMP 97.8
[2021-05-04] MEDS: AMANTADINE HCL 100 MG TABLET PO SCH (11:14)
[2021-05-04] MEDS: COLLAGENASE CLOSTRIDIUM HIST. 30 GRAMS TUBE TP SCH (11:15)
[2021-05-04 12:08] LABS: BASO % 0.8 % (0-2.0); EOS % 0.6 % (0-4.5); HEMATOCRIT 38.5 % (35.4-49); HEMOGLOBIN 12.4 GM/dL (11.7-16.9); LYMPH % 9.8 % (8-40); MCH 28.1 pg (25.7-33.7); MCHC 32.3 g/dl (32.0-35.9); MEAN CELL VOLUME 87.1 fl (80-96); MEAN PLT VOLUME 7.6 fl (7.5-11.1); MONO % 8.5 % (3.8-10.2); NEUT % 80.3 % (42.8-82.8); PLATELET COUNT 382 10^3/uL (134-434); RBC 4.43 M/mm3 (4.00-5.60); RDW 13.9 % (11.9-15.9); WHITE BLOOD COUNT 12.6 K/mm3 (4.0-10.0)
[2021-05-04 12:31] LABS: CALCIUM 8.7 mg/dL (8.5-10.1)
[2021-05-04 12:32] LABS: ALBUMIN 2.6 g/dl (3.4-5.0); BLOOD UREA NITROGEN 23.7 mg/dL (7-18); MAGNESIUM 2.5 mg/dL (1.8-2.4)
[2021-05-04 12:36] LABS: BILIRUBIN,TOTAL 0.8 mg/dL (0.2-1)
[2021-05-04] MEDS ORDERED: CARBIDOPA/LEVODOPA 25/100 TABLET (FP) PO SCH ×2 (12:36→13:00)
[2021-05-04] MEDS ORDERED: CARBIDOPA/LEVODOPA 25/250 TABLET (FP) PO SCH (13:00)
== END 2021-05-04 13:16 | disposition home health service (06) | DRG 593 ==
LOC: JER 10:15 → JERBED 13:46 → J6S 05-01 00:42 → OBSVTOIN 05-02 09:55
PROVIDERS: ADMIT Internal Medicine; ATTEND Nurse Practitioner Acute Care
DX: L89.150 Pressure ulcer of sacral region, unstageable (principal); R44.3 Hallucinations, unspecified; I10 Essential (primary) hypertension; G20 Parkinson's disease; G25.81 Restless legs syndrome; R26.2 Difficulty in walking, not elsewhere classified; L89.322 Pressure ulcer of left buttock, stage 2
CPT/HCPCS: 36415; 71045-TC-FY; 80053; 81003; 82550; 82553; 83735; 84484; 85025; 87086; 93005; 93010; 97116-GP; 97162-GP; 99285-25; C9803; G0378; J1644; U0003; U0005

== ENCOUNTER 2021-05-24 04:19 | Day surgery (SDC) | payer OTHER ==
[2021-05-23 14:42] VITALS: BMI 27.3
[2021-05-24] MEDS ORDERED: LIDOCAINE HCL 1%, 10 MG/ML (20ML VIAL) ONE (13:11)
[2021-05-24] MEDS ORDERED: MIDAZOLAM HCL 2 MG/2 ML SINGLE DOSE VIAL ONE (13:44)
[2021-05-24] MEDS ORDERED: ONDANSETRON 4 MG/2 ML VIAL IVPUSH PRN (13:51)
[2021-05-24] MEDS ORDERED: ceFAZolin SODIUM 1 GM VIAL IVPB ONE (13:57)
[2021-05-24] MEDS ORDERED: ceFAZolin SODIUM 1 GM VIAL ONE (13:59)
[2021-05-24] MEDS ORDERED: LIDOCAINE HCL 1%, 10 MG/ML (20ML VIAL) INF ONE (14:03)
[2021-05-24 16:30] VITALS: TEMP 98.1
[2021-05-24 17:42] VITALS: BP 133/77; PULSE 104
== END 2021-05-24 17:35 | disposition home or self-care (01) ==
LOC: JASU-SURG 04:19
PROVIDERS: ATTEND Surgery Vascular Surgery
PROC: 0KBN0ZZ Excision of Right Hip Muscle, Open Approach (ICD-10-PCS; 2021-05-24)
PROC: 0KBP0ZZ Excision of Left Hip Muscle, Open Approach (ICD-10-PCS; principal; 2021-05-24 13:00)
DX: I96 Gangrene, not elsewhere classified (principal); L89.154 Pressure ulcer of sacral region, stage 4; I10 Essential (primary) hypertension; G20 Parkinson's disease
CPT/HCPCS: 88304-TC; 94760